=== PATIENT | female | born 1955 | race African-American/Black ===

== ENCOUNTER → 2017-12-30 16:50 | Outpatient (CLI) | payer OTHER | END | disposition home or self-care (01) | LOC: D.MAMMO 09:45 | DX: Z12.31 Encounter for screening mammogram for malignant neoplasm of breast (principal) ==

== ENCOUNTER 2020-11-23 11:15 | Outpatient (CLI) | payer MEDICARE, BC | END 2020-11-23 11:45 | disposition home or self-care (01) | LOC: D.MAMMO 11:15 | PROVIDERS: ATTEND Family Medicine | DX: Z12.31 Encounter for screening mammogram for malignant neoplasm of breast (principal) ==